=== PATIENT | female | born 1950 | race Caucasian/White ===

== ENCOUNTER 2018-09-12 07:49 | Day surgery (SDC) | payer MEDICARE ==
[~2018-09-12 07:49] MED LIST: FLEC100T PO; PROPOFOL 10 MG/ML, 20ML ONE
[2018-09-12 08:24] VITALS: BP 139/102
[2018-09-12] MEDS ORDERED: ZOLP5TAB6 PO (08:31)
[2018-09-12] MEDS ORDERED: OMEP-110 PO (08:31)
[2018-09-12] MEDS ORDERED: ALBU8.5H8 INH (08:31)
[2018-09-12] MEDS ORDERED: MELA10TA PO (08:31)
[2018-09-12] MEDS ORDERED: APIX5TAB PO (08:31)
[2018-09-12 08:40] LABS: BASOPHILS # (AUTO) 0.03 x10^3/uL (0-0.1); BASOPHILS % (AUTO) 1 % (0-1); EOSINOPHILS # (AUTO) 0.35 x10^3/uL (0-0.4); EOSINOPHILS % (AUTO) 6 % (1-7); LYMPHOCYTES # (AUTO) 1.53 x10^3/uL (1-3.4); LYMPHOCYTES % (AUTO) 28 % (22-44); MD NO; MEAN CORPUSCULAR HEMOGLOBIN 30.1 pg (27.0-34.8); MEAN CORPUSCULAR HGB CONC 33.7 g/dL (32.4-35.8); MEAN CORPUSCULAR VOLUME 89.2 fL (80-100); MEAN PLATELET VOLUME 8.1 fL (7.4-10.4); MONOCYTES % (AUTO) 9 % (2-9); NEUTROPHILS # (AUTO) 3.05 x10^3/uL (1.8-6.8); NEUTROPHILS % (AUTO) 56 % (42-75); PLATELET COUNT 274 x10^3/uL (130-400); RED BLOOD COUNT 4.77 x10^6/uL (3.82-5.3)
[2018-09-12 08:46] LABS: ANION GAP 9 mmol/L (5-15); CALCIUM 8.8 mg/dL (8.5-10.1); CHLORIDE 111 mmol/L (98-107); CREATININE 0.65 mg/dL (0.55-1.02)
== END 2018-09-12 12:15 | disposition home or self-care (01) ==
LOC: CACL 07:49
PROVIDERS: ATTEND Internal Medicine Cardiovascular Disease
DX: I48.0 Paroxysmal atrial fibrillation (principal); I34.0 Nonrheumatic mitral (valve) insufficiency; K21.9 Gastro-esophageal reflux disease without esophagitis; Z87.891 Personal history of nicotine dependence; Z79.899 Other long term (current) drug therapy; Z79.82 Long term (current) use of aspirin
CPT/HCPCS: 36415; 71046; 80048; 85025; 92960; 93312; 93320; 93325; J2704

== ENCOUNTER 2018-10-13 12:21 | Outpatient (CLI) | payer MEDICARE ==
[~2018-10-13 12:21] MED LIST changes: -OMNIPAQUE 350 MG/ML, 150 ML BOTTLE ONE
== END 2018-10-13 23:59 | disposition home or self-care (01) ==
LOC: STAR 12:21
PROVIDERS: ATTEND Internal Medicine Cardiovascular Disease
DX: Z02.9 Encounter for administrative examinations, unspecified (principal)

== ENCOUNTER → 2018-10-13 | Outpatient (CLI) | payer MEDICARE ==
[~2018-10-13] MED LIST changes: +ALBU8.5H8 INH; +APIX5TAB PO; +MELA10TA PO; +OMEP-110 PO; +OMNIPAQUE 350 MG/ML, 150 ML BOTTLE ONE; -PROPOFOL 10 MG/ML, 20ML ONE; +ZOLP5TAB6 PO
== END | disposition home or self-care (01) ==
LOC: CFH 10:38
PROVIDERS: ATTEND Internal Medicine Cardiovascular Disease
DX: I48.0 Paroxysmal atrial fibrillation (principal); J98.11 Atelectasis
CPT/HCPCS: 75572; Q9967

== ENCOUNTER 2018-10-17 08:06 | Observation (INO) | payer MEDICARE ==
[2018-10-13 13:10] LABS: BASOPHILS # (AUTO) 0.02 x10^3/uL (0-0.1); BASOPHILS % (AUTO) 0 % (0-1); EOSINOPHILS # (AUTO) 0.62 x10^3/uL (0-0.4); EOSINOPHILS % (AUTO) 9 % (1-7); LYMPHOCYTES % (AUTO) 26 % (22-44); MD NO; MEAN CORPUSCULAR HEMOGLOBIN 30.6 pg (27.0-34.8); MEAN CORPUSCULAR HGB CONC 33.8 g/dL (32.4-35.8); MEAN CORPUSCULAR VOLUME 90.8 fL (80-100); MONOCYTES # (AUTO) 0.32 x10^3/uL (0.2-0.8); MONOCYTES % (AUTO) 5 % (2-9); NEUTROPHILS # (AUTO) 3.96 x10^3/uL (1.8-6.8); NEUTROPHILS % (AUTO) 60 % (42-75); PLATELET COUNT 239 x10^3/uL (130-400); RED BLOOD COUNT 4.89 x10^6/uL (3.82-5.3)
[2018-10-13 13:14] LABS: INTERNATIONAL NORMALIZED RATIO 1.04 (0.93-1.1)
[2018-10-13 13:15] LABS: ALANINE AMINOTRANSFERASE 45 U/L (12-78); ALBUMIN 3.8 g/dL (3.4-5.0); ANION GAP 6 mmol/L (5-15); CALCIUM 8.7 mg/dL (8.5-10.1); CHLORIDE 108 mmol/L (98-107); CREATININE 0.78 mg/dL (0.55-1.02)
[2018-10-13 13:18] LABS: ALKALINE PHOSPHATASE 116 U/L (45-117); BILIRUBIN,TOTAL 0.5 mg/dL (0.2-1.0); TOTAL PROTEIN 7.2 g/dL (6.4-8.2)
[~2018-10-17] VITALS: Ht 162.6 cm; Wt 82.8 kg
[2018-10-17] MEDS ORDERED: SODIUM CHLORIDE 0.9% 1,000 ML IV SCH (08:35)
[2018-10-17] MEDS ORDERED: SODIUM CHLORIDE 0.9% 1,000 ML IV ONE (09:00)
[2018-10-17] MEDS ORDERED: FENTANYL PF 250 MCG/5ML ONE (10:42)
[2018-10-17] MEDS ORDERED: MIDAZOLAM 1 MG/ML, 2ML ONE (10:42)
[2018-10-17] MEDS ORDERED: HEPARIN 1,000 UNITS/ML, 10ML ONE (11:29)
[2018-10-17] MEDS ORDERED: SUCCINYLCHOLINE 20 MG/ML, 10ML ONE (11:30)
[2018-10-17] MEDS ORDERED: PROPOFOL 10 MG/ML, 20ML ONE (11:30)
[2018-10-17] MEDS ORDERED: ROCURONIUM 10MG/ML,5ML ONE (11:30)
[2018-10-17] MEDS ORDERED: PROTAMINE SULFATE 10 MG/ML, 5ML ONE (11:38)
[2018-10-17] MEDS ORDERED: ISOPROTERENOL 0.2MG/ML, 1ML ONE (11:38)
[2018-10-17] MEDS ORDERED: ONDANSETRON 2MG/ML, 2ML ONE (13:40)
[2018-10-17] MEDS ORDERED: DEXAMETHASONE 4 MG/ML, 1ML ONE (13:41)
[2018-10-17] MEDS ORDERED: TEMPLATE NON-FORMULARY MED. (Albuterol Sulfate (Proair Hfa) 2 PUFF(S)) INH SCH (14:00)
[2018-10-17] MEDS ORDERED: ACETAMINOPHEN 325 MG TABLET PO PRN ×2 (14:00→14:30)
[2018-10-17] MEDS ORDERED: ZOLPIDEM 5MG TABLET PO PRN (14:00)
[2018-10-17] MEDS ORDERED: APIXABAN 5 MG TABLET ONE (14:24)
[2018-10-17] MEDS ORDERED: OXYcodone 5 MG/5 ML ORAL.SOL UDC PO PRN (14:30)
[2018-10-17] MEDS ORDERED: MIDAZOLAM 1 MG/ML, 2ML IV PRN (14:30)
[2018-10-17] MEDS ORDERED: MEPERIDINE/PF 25MG/0.5ML IVPush PRN (14:30)
[2018-10-17] MEDS ORDERED: LABETALOL 5MG/ML, 20ML IV PRN (14:30)
[2018-10-17] MEDS ORDERED: PROMETHAZINE 25 MG/ML, 1ML IV PRN (14:30)
[2018-10-17] MEDS ORDERED: FENTANYL PF 100 MCG/2ML IV PRN (14:30)
[2018-10-17] MEDS ORDERED: DIAZEPAM 5 MG/ML, 2ML IVPush PRN (14:30)
[2018-10-17] MEDS ORDERED: PROMETHAZINE 12.5 MG SUPP PR PRN (14:30)
[2018-10-17] MEDS ORDERED: hydrALAzine 20 MG/ML, 1ML IV PRN (14:30)
[2018-10-17] MEDS ORDERED: APIXABAN 5 MG TABLET PO ONE (14:30)
[2018-10-17] MEDS ORDERED: MORPHINE SULFATE 4 MG/ML, 1ML IVPush PRN (14:30)
[2018-10-17] MEDS ORDERED: ONDANSETRON ODT 8 MG PO PRN (14:30)
[2018-10-17] MEDS ORDERED: ALBUTEROL SULFATE 2.5 MG/3 ML NPPB PRN (14:30)
[2018-10-17] MEDS ORDERED: HYDROmorphone 2 MG/ML, 1ML IVPush PRN (14:30)
[2018-10-17] MEDS ORDERED: ONDANSETRON 2MG/ML, 2ML IV PRN (14:30)
[2018-10-17] MEDS ORDERED: EPHEDRINE 50 MG/ML, 1ML IVPush PRN (14:30)
[2018-10-17 15:13] VITALS: BP 145/84
[2018-10-17 19:08] VITALS: BP 97/62
[2018-10-17] MEDS ORDERED: ZOLPIDEM 5MG TABLET PO SCH (21:00)
[2018-10-17 21:47] VITALS: BP 113/71
[2018-10-17] MEDS: APIXABAN 5 MG TABLET PO SCH (21:52)
[2018-10-17] MEDS: FLECAINIDE 100MG TABLET PO SCH (21:52)
[2018-10-18 02:57] VITALS: BP 105/65
[2018-10-18 08:00] VITALS: BP 103/72
[2018-10-18] MEDS ORDERED: MELATONIN 5 MG TABLET PO SCH (09:00)
[2018-10-18] MEDS ORDERED: OMEPRAZOLE 20 MG CAPSULE.DR PO SCH (09:00)
[2018-10-18] MEDS ORDERED: FLECAINIDE 100MG TABLET PO SCH (09:00)
[2018-10-18] MEDS: APIXABAN 5 MG TABLET PO SCH (09:12)
[2018-10-18] MEDS: FLECAINIDE 100MG TABLET PO SCH (09:13)
[2018-10-18] MEDS ORDERED: APIX5TAB PO (13:05)
== END 2018-10-18 16:16 | disposition home or self-care (01) ==
LOC: CACL 08:06 → ORIP 13:41 → 5SO 15:03 → DCLOUNGE 10-18 16:00
PROVIDERS: ADMIT Internal Medicine Cardiovascular Disease; ATTEND Internal Medicine Cardiovascular Disease
DX: I48.0 Paroxysmal atrial fibrillation (principal); I48.92 Unspecified atrial flutter
CPT/HCPCS: 36415; 71046; 80053; 85025; 85347; 85610; 85730; 93308; 93312; 93321; 93325; 93613; 93621; 93653; 93655; 93662; C1730; C1732; C1759; C1766; C1893; C1894; G0378; J0330; J1100; J1644; J2250; J2405; J2704; J2720; J3010